=== PATIENT | female | born 1955 | race Hispanic/Latino ===

== ENCOUNTER 2018-02-12 18:32 | Emergency (ER) | payer OTHER ==
[2018-02-12] MEDS ORDERED: Sodium Chloride 0.9% 1,000 ML IV ONE (19:14)
[2018-02-12 19:41] LABS: BASO # 0.1 K/uL (0.0-0.2); BASO % 0.7 % (0.0-2.0); EOS # 0.3 K/uL (0.0-0.7); EOS % 4.3 % (0.0-4.0); HEMOGLOBIN 12.7 g/dL (11.0-16.0); LYMPH # 2.5 K/uL (1.0-4.3); LYMPH % 34.6 % (20.0-40.0); MEAN CELL VOLUME 83.5 fL (81.0-99.0); MEAN CORPUSCULAR HEMOGLOBIN 27.6 pg (27.0-31.0); MEAN PLATELET VOLUME 7.3 fL (7.2-11.7); MONO # 0.5 K/uL (0.0-0.8); NEUT # 3.9 K/uL (1.8-7.0); NEUT % 53.4 % (50.0-75.0); RBC 4.61 Mil/uL (3.80-5.20); RED CELL DISTRIBUTION WIDTH 13.6 % (11.5-14.5); WHITE BLOOD COUNT 7.3 K/uL (4.8-10.8)
--- NOTE | 2018-02-12 19:43 | C.PDOC ---
History Of Present Illness 62 year old female presents to the ER with a complaint of elevated blood sugar that began today. Patient states her blood sugar was 368 after lunch. She reports some mild fatigue but otherwise has no other complaints. Patient takes T eniva and Zoryl for her diabetes and is complaint with them. Time Seen by Provider: 02/12/18 19:00 Chief Complaint (Nursing): High Blood Sugar History Per: Patient History/Exam Limitations: no limitations Onset/Duration Of Symptoms: Hrs Current Symptoms Are (Timing): Still Present Current Diabetic Medications: Other (Teniva, Zoryl) Associated Infectious Symptoms: Other (Mild fatigue) Recent travel outside of the [place]: No Past Medical History Reviewed: Historical Data, Nursing Documentation, Vital Signs Vital Signs: Last Vital Signs Temp 98.3 F 02/12/18 18:38 Pulse 94 H 02/12/18 18:38 Resp 20 02/12/18 18:38 BP 151/80 H 02/12/18 18:38 Pulse Ox 98 02/12/18 18:38 Family History: States: Unknown Family Hx - Social History Hx Alcohol Use: No Hx Substance Use: No - Immunization History Hx Tetanus Toxoid Vaccination: No Hx Influenza Vaccination: No Review Of Systems Except As Marked, All Systems Reviewed And Found Negative. Constitutional: Positive for: Other (Mild fatigue) Physical Exam - Physical Exam Appears: Non-toxic, No Acute Distress Skin: Normal Color, Warm, Dry Head: Atraumatic, Normacephalic Eye(s): bilateral: Normal Inspection Oral Mucosa: Moist Neck: Normal, Supple Chest: Symmetrical, No Tenderness Cardiovascular: Rhythm Regular Respiratory: Normal Breath Sounds, No Rales, No Rhonchi, No Wheezing Gastrointestinal/Abdominal: Soft, No Tenderness Back: No CVA Tenderness Extremity: Normal ROM (x4) Neurological/Psych: Oriented x3, Normal Speech Gait: Steady ED Course And Treatment - Laboratory Results Result Diagrams: 02/12/18 19:37 02/12/18 19:37 O2 Sat by Pulse Oximetry: 98 (Room air) Pulse Ox Interpretation: Normal Progress Note: Blood work and urinalysis ordered. IV fluids administered. Patient advised to follow up with PMD to adjust medications as needed. Disposition Counseled Patient/Family Regarding: Studies Performed, Diagnosis, Need For Followup - Disposition Referrals: Uziel Mcfadden MD [Medical Doctor] - Disposition: HOME/ ROUTINE Disposition Time: 20:15 Condition: STABLE Additional Instructions: FOLLOW UP WITH YOUR DOCTOR IN 1-2 DAYS RETURN TO ER IF SYMPTOMS WORSEN Instructions: Hyperglycemia, Adult (DC) Forms: [employer] (Yakut) Print Language: UZBEK - Clinical Impression Clinical Impression: Hyperglycemia - Scribe Statement The provider has reviewed the documentation as recorded by the Scribe Felice Benitez All medical record entries made by the Scribe were at my direction and personally dictated by me. I have reviewed the chart and agree that the record accurately reflects my personal performance of the history, physical exam, medical decision making, and the department course for this patient. I have also personally directed, reviewed, and agree with the discharge instructions and disposition.
[2018-02-12] MEDS ORDERED: Sodium Chloride 0.9% 1,000 ML ONE (19:46)
[2018-02-12 19:48] LABS: SQUAMOUS EPITHIAL < 1 /hpf (0-5); URINE BILIRUBIN NEGATIVE (NEGATIVE); URINE BLOOD NEGATIVE (NEGATIVE); URINE CLARITY Clear (Clear); URINE COLOR Colorless (YELLOW); URINE GLUCOSE (UA) 3+ mg/dL (Normal); URINE LEUKOCYTE ESTERASE TRACE Leu/uL (Negative); URINE PROTEIN NEGATIVE (NEGATIVE); URINE UROBILINOGEN NORMAL mg/dL (0.2-1.0)
[2018-02-12 19:50] LABS: VENOUS BLOOD GAS BASE EXCESS 0.3 mmol/L (0.0-2.0); VENOUS BLOOD GAS PCO2 45 mmHg (40-60); VENOUS BLOOD GAS PO2 42 mm/Hg (30-55); VENOUS BLOOD PH 7.37 (7.32-7.43)
[2018-02-12 19:54] LABS: ALB/GLOB RATIO 1.4 (1.0-2.1); ALBUMIN 4.6 g/dL (3.5-5.0); ALT/SGPT 21 U/L (9-52); AST/SGOT 22 U/L (14-36); BLOOD UREA NITROGEN 14 mg/dL (7-17); CALCIUM 9.5 mg/dl (8.6-10.4); GFR NON-AFRICAN AMERICAN > 60
[2018-02-12 20:50] VITALS: BP 139/78; PULSE 90; RESP 18; TEMP 98.4; O2SAT 99
== END 2018-02-12 20:49 | disposition home or self-care (01) ==
LOC: C.ER 18:32
DX: E11.65 Type 2 diabetes mellitus with hyperglycemia (principal)
CPT/HCPCS: 80053; 81001; 82009; 82803; 82948; 83930; 85025; 99284; J7030